=== PATIENT | male | born 1995 | race Caucasian/White ===

== ENCOUNTER 2018-01-21 12:59 | Emergency (ER) | payer OTHER ==
[~2018-01-21] VITALS: Ht 182.9 cm; Wt 77.1 kg
[2018-01-21 14:30] VITALS: BP 145/91
[2018-01-21] MEDS ORDERED: LIDOCAINE 1% HCL (LOCAL ANESTH.) INJ 20ML MDV IJ ONE (15:30)
[2018-01-21] MEDS ORDERED: LIDOCAINE 1% (LOCAL ANESTH.) PF 5ml SDV ONE (15:32)
[2018-01-21] MEDS ORDERED: IBUPROFEN 800 MG TAB PO ONE (16:15)
== END 2018-01-21 16:10 | disposition home or self-care (01) ==
LOC: ER 13:03
DX: S01.81XA Laceration without foreign body of other part of head, initial encounter (principal); W26.8XXA Contact with other sharp object(s), not elsewhere classified, initial encounter; Y93.89 Activity, other specified; Y92.89 Other specified places as the place of occurrence of the external cause; Y99.8 Other external cause status
CPT/HCPCS: 12011

== ENCOUNTER 2018-08-14 12:45 | Inpatient (IN) | payer OTHER, MEDICAID ==
[~2018-08-14] VITALS: Ht 182.9 cm; Wt 77.3 kg
[2018-08-14] MEDS ORDERED: ASPirin 81 mg TAB PO ONE (13:30)
[2018-08-14 14:10] LABS: Basophils # (auto) 0.1 uL; Eosinophils # (auto) 0.2 uL; Eosinophils % (auto) 2.6 % (0.0-7.0); Hemoglobin 16.4 g/dL (13.5-17.5); Lymphocytes % (auto) 16.1 % (10.0-50.0); Mean Corpuscular Hemoglobin 30.9 pg (28.0-32.0); Mean Corpuscular Hgb Conc. 34.3 g/dL (32.0-36.0); Mean Corpuscular Volume 90.1 fL (80.0-100.0); Monocytes # (auto) 0.5 uL; Neutrophils # (auto) 4.5 uL; Neutrophils % (auto) 72.3 % (37.0-80.0); Nucleated Red Blood Cells % 0.3 %; Platelet Count (auto) 156 10^3/uL (140-450); Red Blood Cells 5.33 10^6/uL (4.5-5.90); White Blood Cell 6.2 10^3/uL (4.4-10.8)
[2018-08-14 14:28] LABS: Alanine Aminotransferase 161 U/L (16-61); Albumin 4.2 g/dL (3.4-5.0); Anion Gap 5 (5-15); Aspartate Aminotransferase 86 U/L (15-37); Blood Urea Nitrogen 13 mg/dL (7-18); Calcium 9.2 mg/dL (8.5-10.1); Carbon Dioxide 29 mmol/L (21-32); Chloride 105 mmol/L (98-107); GFR African American 107 mL/min; GFR Non-African American 89 mL/min; Glucose 90 mg/dL (74-106); Potassium 4.5 mmol/L (3.5-5.1); Sodium 139 mmol/L (136-145)
[2018-08-14 14:32] LABS: Alkaline Phosphatase 76 U/L (45-117); Bilirubin, Total 1.2 mg/dL (0.2-1.0); Total Protein 7.6 g/dL (6.4-8.2)
[2018-08-14] MEDS: SODIUM CHLORIDE 0.9% 1,000 ML IV SCH (15:03)
[2018-08-14] MEDS: PANTOPRAZOLE 40 MG TAB PO SCH (15:09)
[2018-08-14] MEDS: NITROGLYCERIN 0.2MG/HR TOPICAL PATCH TD SCH (15:10)
[2018-08-14] MEDS: ENOXAPARIN SOD 40 MG/0.4 ML SYRINGE SC SCH (15:10)
[2018-08-14 15:15] LABS: Amphetamine Screen, Urine NEGATIVE (NEGATIVE); Barbiturate Scree,Urine NEGATIVE (NEGATIVE); Benzodiazephine Screen, Urine NEGATIVE (NEGATIVE); Cannabinoid Screen, Urine POSITIVE (NEGATIVE); Cocaine Screen, Urine POSITIVE (NEGATIVE); Opiate Scree,Urine NEGATIVE (NEGATIVE); Phencyclidine Screen, Urine NEGATIVE (NEGATIVE)
[2018-08-14] MEDS ORDERED: TEMAZEPAM 15 MG CAP PO PRN (15:15)
[2018-08-14] MEDS ORDERED: LORazepam 0.5 MG TAB PO PRN (15:15)
[2018-08-14] MEDS ORDERED: LACTULOSE 20Gm/30ML SOLN PO PRN (15:15)
[2018-08-14] MEDS ORDERED: PROMETHAZINE HCL 25 MG/ML 1ML IV PRN (15:15)
[2018-08-14] MEDS ORDERED: NITROGLYCERIN 0.4 MG SL TAB SL PRN (15:15)
[2018-08-14] MEDS ORDERED: traMADol HCL 50 MG TAB PO PRN (15:15)
[2018-08-14] MEDS ORDERED: MORPHINE SULF INJ 2 MG/ML SYRINGE 1ML IV PRN (15:15)
--- NOTE | 2018-08-14 17:00 | NUR ---
Telemetry admit from ER FRANK GARVIN admitted to Telemetry unit after SBAR received. Patient oriented to TONY RUIZ RN primary RN, unit, room 245B, bed, and unit policies regarding patient care and visiting hours. Patient now on continuous telemetry monitoring, tele box # 5 and telemetry reading on arrival to unit is sinus rhythm with st elevation, per er nurse physician aware. Patient placed on bedside oxygen, weighed by bedscale and encouraged to call if they need something. All questions and concerns addressed, patient verbalized understanding. Bed in low and locked position, rails up x2, no-slip socks on.
[2018-08-14 19:00] VITALS: BP 139/72
--- NOTE | 2018-08-14 19:40 | NUR ---
Opening Shift Note Assumed care of patient, awake and alert, speaking on cell phone. No S/S of distress/SOB or pain. Bed in lowest locked position, side rails up x2, call light within reach. Instructed on POC and to call for assist PRN, will continue to monitor for changes Q1hr and PRN.
[2018-08-14] MEDS ORDERED: BACL10TA PO (19:43)
[2018-08-14 22:00] VITALS: BP 117/64
[2018-08-15] MEDS: SODIUM CHLORIDE 0.9% 1,000 ML IV SCH (04:23)
[2018-08-15 04:59] VITALS: BP 115/61
--- NOTE | 2018-08-15 06:45 | NUR ---
Closing Note Patient lying in bed, awake and alert. No s/s of distress. Care endorsed to dayshift RN.
[2018-08-15 06:50] LABS: Calcium 8.4 mg/dL (8.5-10.1); Potassium 3.8 mmol/L (3.5-5.1)
[2018-08-15 06:57] LABS: Albumin 3.3 g/dL (3.4-5.0); BUN/Creatinine Ratio 17.2; Bilirubin, Total 0.9 mg/dL (0.2-1.0); Total Protein 6.2 g/dL (6.4-8.2)
--- NOTE | 2018-08-15 07:15 | NUR ---
Opening Shift Note Assumed care of patient, awake and alert. No S/S of distress/SOB or pain. Instructed on POC and to call for assist PRN, will continue to monitor for changes Q1hr and PRN. Bed in low and locked position, rails up x2, no-slip socks on.
[2018-08-15 08:46] VITALS: BP 117/71
[2018-08-15] MEDS: ENOXAPARIN SOD 40 MG/0.4 ML SYRINGE SC SCH (09:33)
[2018-08-15] MEDS: PANTOPRAZOLE 40 MG TAB PO SCH (09:33)
[2018-08-15] MEDS: NITROGLYCERIN 0.2MG/HR TOPICAL PATCH TD SCH (09:33)
[2018-08-15] MEDS ORDERED: ASPirin 81 mg TAB PO SCH (10:00)
--- NOTE | 2018-08-15 10:15 | NUR ---
DR STEVENS AT BEDSIDE CLEARED BY CARDIOLOGY
--- NOTE | 2018-08-15 11:00 | NUR ---
REMOVED NITRO PATCH PATIENT COMPLAINED OF HEADACHE AND REMOVED NITRO PATCH. WILL CONTINUE TO MONITOR PATIENT.
[2018-08-15 12:50] VITALS: BP 110/72
--- NOTE | 2018-08-15 12:55 | NUR ---
DR SCHULTE AT BEDSIDE ORDERS FOR DISCHARGE
[2018-08-15 13:21] VITALS: BP 110/72
--- NOTE | 2018-08-15 13:35 | NUR ---
DISCHARGE Discharge instructions given as ordered. Encourage to follow up with PMD as instructed. All questions and concerns addressed. Patient verbalized understanding. Medication reconciliation form completed and copy given to patient. IV removed with catheter intact, pressure dressing applied. Telemetry unit returned to [facility]. Patient taken to vehicle via wheelchair with all personal belongings, accompanied by staff and girlfriend. No distress noted at time of departure.
[2018-08-17 10:35] LABS: Hepatitis B Surface Antibody Negative
[2018-08-17 11:12] LABS: Hepatitis A Total Antibody Negative
[2018-08-17 13:02] LABS: Hepatitis B Surface Antigen Negative (Negative); Hepatitis C Antibody Negative (Negative)
[2018-08-17 13:03] LABS: Hepatitis B Core Total AB Negative
== END 2018-08-15 14:31 | disposition home or self-care (01) | DRG 313 ==
LOC: ER 12:45 → TELE 15:06 → TELE-EAST 17:16
PROVIDERS: ADMIT Internal Medicine; ATTEND Internal Medicine
DX: R07.89 Other chest pain (principal); I24.9 Acute ischemic heart disease, unspecified; F14.90 Cocaine use, unspecified, uncomplicated; K76.0 Fatty (change of) liver, not elsewhere classified; Z82.49 Family history of ischemic heart disease and other diseases of the circulatory system; Z87.891 Personal history of nicotine dependence
CPT/HCPCS: 36415; 71046; 76705; 80053; 80061; 80307; 82550; 83880; 84443; 84484; 85025; 85379; 85652; 86141; 86704; 86706; 86708; 86803; 87340; 93005; 93306; 94761; 96372; G0378